=== PATIENT | female | born 1970 | race Two or more races ===

== ENCOUNTER 2021-01-19 14:32 | Outpatient (CLI) | payer OTHER | END 2021-01-19 23:59 | disposition home or self-care (01) | LOC: LAB 14:32 | PROVIDERS: ATTEND Specialist | DX: Z01.812 Encounter for preprocedural laboratory examination (principal); Z20.822 Contact with and (suspected) exposure to COVID-19 | CPT/HCPCS: C9803; U0003 ==

== ENCOUNTER 2021-01-23 05:00 | Inpatient (IN) | payer OTHER ==
[~2021-01-23] VITALS: Ht 157.5 cm; Wt 99.8 kg
[2021-01-23] MEDS ORDERED: ANESTHESIA TRAY IN PYXIS 1 EA TRAY MC ONE (05:58)
[2021-01-23] MEDS ORDERED: BACITRACIN 50000 UNITS/VIAL ONE (05:59)
[2021-01-23] MEDS ORDERED: BUPIVACAINE 0.5 % PF 150 MG/30 ML VIAL ONE (05:59)
[2021-01-23] MEDS ORDERED: FENTANYL PF 100MCG/2ML AMPUL ONE (06:25)
[2021-01-23] MEDS ORDERED: MIDAZOLAM HCL 2 MG/2ML VIAL ONE (06:25)
[2021-01-23] MEDS ORDERED: ROCURONIUM BROMIDE 50 MG/5 ML ONE (06:26)
[2021-01-23] MEDS ORDERED: HYDROMORPHONE INJ 2 MG/ML DISP.SYRIN ONE ×2 (06:30→07:02)
[2021-01-23] MEDS ORDERED: TRANEXAMIC ACID 3,000 MG in SODIUM CHLORIDE IRRIG SOLUTION 70 ML IR ONE (07:00)
[2021-01-23] MEDS ORDERED: LEVO125T8 PO (07:09)
[2021-01-23] MEDS ORDERED: VALS40TA4 PO (07:09)
--- NOTE | 2021-01-23 08:00 | NUR ---
MS RN NOTE RECEIVED REPORT ON PATIENT - PATIENT CURRENTLY IN SURGERY.
--- NOTE | 2021-01-23 09:30 | NUR ---
MS RN NOTE RECEIVED PATIENT FROM RECOVERY. STABLE, VITALS: 136/76 HR 102 O2 98% TEMP 98.2. PATIENT WILL BE ADMITTED INPATIENT MED SURG FOR TOTAL KNEE REPLACEMENT. BREATHING IS EVEN AND UNLABORED. PATIENT STATES SHE HAS MINIMAL PAIN, WANTS TO REST FOR NOW. IV ACCESS ON RIGHT HAND #22 - RUNNING D5 1/2 NS @ 125ML/HR. POST OP ORDERS NOTED AND CARRIED OUT. CALL LIGHT WITHIN REACH. WILL CONTINUE TO MONITOR.
[2021-01-23] MEDS ORDERED: DOCUSATE SODIUM 250 MG CAPSULE PO PRN (10:30)
[2021-01-23] MEDS ORDERED: BISACODYL SUPP (10 MG) 10 MG/SUPP.RECT SUPP.RECT RC PRN ×2 (10:30→11:00)
[2021-01-23] MEDS ORDERED: ONDANSETRON HCL/PF 4 MG/2 ML VIAL IVP PRN ×2 (10:30→11:00)
[2021-01-23] MEDS ORDERED: ACETAMINOPHEN 325 MG TABLET PO PRN (10:30)
[2021-01-23] MEDS ORDERED: HYDROCODONE/APAP 5/325MG TABLET PO PRN (10:30)
[2021-01-23] MEDS ORDERED: SENNOSIDES 8.6 MG TABLET PO PRN (10:30)
[2021-01-23] MEDS: IV D5/0.45 NACL 1,000 ML IV PRN ×2 (10:41→22:53)
[2021-01-23 10:58] LABS: HEMOGLOBIN 11.5 g/dL (11.5-14.8)
[2021-01-23] MEDS ORDERED: diphenhydrAMINE HCL 25 MG CAPSULE PO PRN (11:00)
[2021-01-23] MEDS ORDERED: ZOLPIDEM TARTRATE 5 MG TABLET PO PRN (11:00)
[2021-01-23] MEDS ORDERED: CLONIDINE HCL 0.1 MG TABLET PO PRN (11:00)
[2021-01-23] MEDS ORDERED: HYDROCODONE/APAP 10/325MG TABLET PO PRN (11:00)
[2021-01-23] MEDS ORDERED: NALOXONE HCL 0.4 MG/ML AMPUL IV PRN (11:00)
[2021-01-23] MEDS ORDERED: MENTHOL/CETYLPYRD (CEPACOL) 1 LOZ LOZENGE MM PRN (11:00)
[2021-01-23] MEDS ORDERED: MAGNESIUM HYDROXIDE 30 ML UDC PO PRN (11:00)
[2021-01-23] MEDS ORDERED: MORPHINE SULFATE INJ 4 MG/ML DISP.SYRIN IV PRN (11:00)
[2021-01-23] MEDS ORDERED: MAG HYDROX/AL HYDROX/SIMETH 30 ML UDC PO PRN (11:00)
[2021-01-23] MEDS: ANCEF 1 GM/50 ML D5W IV SCH ×2 (14:57→22:54)
[2021-01-23] MEDS: MORPHINE SULFATE INJ 2 MG/ML DISP.SYRIN IV PRN ×2 (15:19→22:16)
[2021-01-23 16:09] VITALS: BP 122/66
[2021-01-23] MEDS: DOCUSATE SODIUM 100 MG CAPSULE PO SCH (17:09)
[2021-01-23] MEDS: ASPIRIN 325 MG TABLET PO SCH (17:09)
--- NOTE | 2021-01-23 18:18 | NUR ---
MS RN CLOSING NOTE PATIENT CURRENTLY LYING IN BED, AWAKE, WATCHING TV. STATUS POST TOTAL KNEE ARTHROPLASTY. A/O X 4. PATIENT IS STABLE AT THIS TIME. NO COMPLAINTS OF PAIN AT THIS TIME. NO DISTRESS NOTED. IV ACCESS TO RIGHT HAND INTACT - RUNNING D5 1/2 NS @ 125ML/HR. ALL POST OP ORDERS NOTED AND CARRIED OUT. SAFETY PRECAUTIONS IMPLEMENTED. CALL LIGHT WITHIN REACH. WILL ENDORSE TO [facility] FOR ALEX.
--- NOTE | 2021-01-23 19:32 | NUR ---
MS RN OPENING NOTE PATIENT IS CURRENTLY AWAKE IN BED. PT IS ALERT AND ORIENTED X3. PATIENT IS ON ROOM AIR AND IN NO RESPIRATORY DISTRESS. PT HAS IV ACCESSES IN BOTH HANDS. SAFETY PRECAUTIONS IN PLACE: BED IS LOCKED AND CALL LIGHT IS WITHIN REACH. WILL CONTINUE TO MONITOR THE PATIENT.
[2021-01-23 20:00] VITALS: BP 149/62
[2021-01-23] MEDS: FAMOTIDINE (20 MG) 20 MG TABLET PO SCH (20:04)
[2021-01-23] MEDS: MORPHINE SULFATE INJ 4 MG/ML DISP.SYRIN IM PRN ×3 (20:05→21:10)
--- NOTE | 2021-01-23 20:11 | NUR ---
MS RN NOTES PATIENT HAD 9/10 ACHING PAIN IN HER RIGHT LEF. PT WAS GIVEN MORPHINE 4 MG/1 ML IV AT 2004. WILL CONTINUE TO MONITOR THE PT.
--- NOTE | 2021-01-23 22:26 | NUR ---
MS RN NOTES PATIENT HAD 5/10 ACHING PAIN IN HER RIGHT LEG. PT WAS GIVEN MORPHINE 2MG/1 ML IV AT 2115. WILL CONTINUE TO MONITOR THE PT.
[2021-01-24] MEDS: MORPHINE SULFATE INJ 2 MG/ML DISP.SYRIN IV PRN (00:26)
[2021-01-24] MEDS ORDERED: LEVOTHYROXINE SODIUM 125 MCG TABLET PO SCH (07:30)
--- NOTE | 2021-01-24 07:56 | NUR ---
MS RN CLOSING NOTES PATIENT IS CURRENTLY AWAKE IN BED. PT IS ALERT AND ORIENTED X3. PATIENT IS ON ROOM AIR AND IN NO RESPIRATORY DISTRESS. PT HAS IV ACCESSES IN BOTH HANDS. SAFETY PRECAUTIONS IN PLACE: BED IS LOCKED AND CALL LIGHT IS WITHIN REACH. WILL CONTINUE TO MONITOR THE PATIENT. RN ENDORSED CARE TO DAY SHIFT NURSE.
[2021-01-24 08:00] VITALS: BP 140/75
[2021-01-24] MEDS: ASPIRIN 325 MG TABLET PO SCH ×2 (08:05→16:38)
[2021-01-24] MEDS: MORPHINE SULFATE INJ 4 MG/ML DISP.SYRIN IM PRN ×2 (08:05→14:36)
[2021-01-24] MEDS: DOCUSATE SODIUM 100 MG CAPSULE PO SCH ×2 (08:05→16:38)
[2021-01-24] MEDS: FAMOTIDINE (20 MG) 20 MG TABLET PO SCH (08:05)
[2021-01-24] MEDS ORDERED: VALSARTAN 40 MG TABLET PO SCH (09:00)
[2021-01-24 16:00] VITALS: BP 147/81
[2021-01-24] MEDS ORDERED: oxyCODONE IR immediate release 5 MG PO ONE (17:02)
[2021-01-24] MEDS ORDERED: oxyCODONE IR immediate release 5 MG PO PRN (17:30)
--- NOTE | 2021-01-24 19:50 | NUR ---
RN NOTES PATIENT LEFT VIA PRIVATE CAR, PATIENT'S DAUGHTER HIV PREVENTION SPECIALIST THE PATIENT, DISCHARGE INSTRUCTIONS WAS RENDERED, PATIENT UNDERSTOOD AND WILL FOLLOW UP WITH DR PEOPLES IN 2 WEEK,
== END 2021-01-24 20:00 | disposition home or self-care (01) | DRG 470 ==
LOC: DS 05:00 → MED 05:05
PROVIDERS: ADMIT Internal Medicine; ATTEND Internal Medicine
PROC: 0SRC0J9 Replacement of Right Knee Joint with Synthetic Substitute, Cemented, Open Approach (ICD-10-PCS; principal; 2021-01-23)
DX: M17.11 Unilateral primary osteoarthritis, right knee (principal); Z68.41 Body mass index [BMI] 40.0-44.9, adult; E66.01 Morbid (severe) obesity due to excess calories; I10 Essential (primary) hypertension; E03.9 Hypothyroidism, unspecified
CPT/HCPCS: 36415; 82962-TC; 84703-TC; 85027-TC; 87081-TC; 97110-TC; 97112-TC; 97116-TC; 97530-TC; 97760-TC; A4217; C1713; C1776; G0378; J0690; J1170; J2250; J2270; J3010; J3490; J7060; L1830